=== PATIENT | female | born 1990 | race Caucasian/White ===

== ENCOUNTER 2019-12-09 05:00 | Inpatient (IN) | payer OTHER, SELFPAY ==
[2019-12-09] VITALS (202 sets, daily range): BP systolic 88–127; BP diastolic 44–87; PULSE 25–144; TEMP 36.4–37.6; O2SAT 84–100; BMI 27.3
--- NOTE | 2019-12-09 05:07 | LDADM ---
This patient, Genevieve Brewster, was admitted to Labor/Delivery/Recovery 104 on 12/09/19 at 05:00. Plans for labor, pain management and were discussed with patient. Patient/family oriented to hospital policies and general routines including ID bracelet, bed and alarms, visiting hours, pain management, procedures, bathroom and other care routines, personal items, smoking policy, room service/diet and guest tray routines, security routines, and visiting hours. Patient/Family are encouraged to report perceived risks to care and to ask questions if they do not understand what they are told or what they should do. See OBIX for further documentation.
[2019-12-09 05:40] LABS: Basophils Percent Auto 0.3 % (0.2-1.2); Eosinophils Absolute Auto 0.1 K/mm3 (0-0.3); Eosinophils Percent Auto 1.2 % (0-4.4); Hematocrit 37.3 % (37.0-47.0); Hemoglobin 12.9 g/dL (12.0-15.0); Immature Granulocyte Absolute 0.05 K/mm3 (0.00-0.031); Immature Granulocyte Percent A 0.5 % (0-0.5); Lymphocytes Absolute Auto 1.59 K/mm3 (0.9-3.2); Lymphocytes Percent Auto 15.3 % (18.3-44.2); Mean Corpuscular HGB Conc 34.6 g/dl (32-36); Mean Corpuscular Hemoglobin 30.9 pg (26-34); Mean Corpuscular Volume 89.4 fl (80-100); Mean Platelet Volume 11.1 fl (7.4-10.4); Monocytes Absolute Auto 0.5 K/mm3 (0.1-0.6); Monocytes Percent Auto 5.1 % (2.6-8.5); Neutrophils Absolute Auto 8.1 K/mm3 (1.3-6.7); Neutrophils Percent Auto 77.6 % (45.5-73.1); Platelet Count Result 247 k/mm3 (150-375); Red Blood Count 4.17 M/mm3 (4.2-5.4); Red Cell Distribution Width 12.8 % (11.5-14.5); White Blood Count 10.4 K/mm3 (4.5-10.0)
[2019-12-09] MEDS: OXYTOCIN 30 UNITS/NS 500 ML 30 UNITS/500 ML BAG 6 UNITS IV CONT (05:42)
[2019-12-09] MEDS: LACTATED RINGERS 1,000 ML 125 ML IV CONT ×2 (05:42→14:08)
--- NOTE | 2019-12-09 07:39 | WPDOBADMIT ---
Obstetrics - Admit Note Admission Note: record reviewed. No pertinent additions to the history and/or any subsequent changes in the physical findings that are not consistent with the expected course of the were found. Additions to the history and/or subsequent changes in the physical findings follow. Here for MIL at 39 wks. Cervix 150/-2 AROM with clear fluid. FHTs reactive
[2019-12-09 11:04] LABS: Rapid Plasma Reagin Non-Reactive (NonReactive)
--- NOTE | 2019-12-09 13:39 | P.PNAN_ITS ---
Anes - Eval Pre Procedure Procedure: labor epidural Date/Time: 12/09/19 13:39 Pre Op Diagnosis: IOL Patient Data Age: 29 Gender: F Height: 1.6 m Weight: 70 kg Last Vital Signs Temp 37.2 C 12/09/19 11:30 Pulse 71 12/09/19 13:31 BP 107/70 12/09/19 13:31 Allergies Allergy/AdvReac Type Severity Reaction Status Date / Time No Known Allergies Allergy Unverified 04/16/19 14:49 Home Medications Medication Instructions Recorded Confirmed Type PNV cmb#95-ferrous fumarate-FA 1 tablet PO DAILY 11/10/19 11/10/19 History [] ergocalciferol (vitamin D2) 1,250 mcg PO WEEKLY 11/10/19 11/10/19 History [Vitamin D2] Laboratory Tests 12/09/19 12/09/19 12/09/19 05:22 05:22 05:22 WBC 10.4 K/mm3 H K/mm3 (4.5-10.0) RBC 4.17 M/mm3 L M/mm3 (4.2-5.4) Hgb 12.9 g/dL g/dL (12.0-15.0) Hct 37.3 % % (37.0-47.0) MCV 89.4 fl fl (80-100) MCH 30.9 pg pg (26-34) MCHC 34.6 g/dl g/dl (32-36) RDW 12.8 % % (11.5-14.5) Plt Count 247 k/mm3 k/mm3 (150-375) MPV 11.1 fl H fl (7.4-10.4) Immature Gran % (Auto) 0.5 % % (0-0.5) Neut % (Auto) 77.6 % H % (45.5-73.1) Lymph % (Auto) 15.3 % L % (18.3-44.2) [place] % (Auto) 5.1 % % (2.6-8.5) Eos % (Auto) 1.2 % % (0-4.4) Baso % (Auto) 0.3 % % (0.2-1.2) Lymph # (Auto) 1.59 K/mm3 K/mm3 (0.9-3.2) [place] # (Auto) 0.5 K/mm3 K/mm3 (0.1-0.6) Eos # (Auto) 0.1 K/mm3 K/mm3 (0-0.3) Baso # (Auto) 0.0 K/mm3 K/mm3 (0.0-0.1) Abs Immat Gran (auto) 0.05 K/mm3 H K/mm3 (0.00-0.031) Absolute Neuts (auto) 8.1 K/mm3 H K/mm3 (1.3-6.7) Absolute Nucleated RBC 0.0 K/mm3 K/mm3 (0.0-0.012) Nucleated RBC % 0.0 % % (0.0-0.2) RPR Non-reactive (NonReactive) Blood Type A Positive Antibody Screen Negative Patient hx anesthesia problems: none Family hx anesthesia problems: none PMFSH Family History Family History Father Diabetes mellitus Hypertension Grandparent Cancer of unknown origin Grandparent Prediabetes Grandparent Diabetes mellitus Father Diabetes mellitus Hypertension Patient's father is in good health Grandparent Diabetes mellitus Mother Patient's mother is in good health Social History Social History Smoking status: Never smoker Alcohol intake: current Drinks per week: 2 Substance use: never Substance use type: does not use Gender identity (if verbalized by the patient): Female Spiritual care concerns: No Exam Day of Procedure 12/09/19 13:39
[2019-12-10] VITALS (54 sets, daily range): BP systolic 93–120; BP diastolic 42–73; PULSE 61–159; RESP 16–18; TEMP 36.4–37.6; O2SAT 84–100
[2019-12-10] MEDS: LACTATED RINGERS 1,000 ML 125 ML IV CONT (01:59)
--- NOTE | 2019-12-10 03:31 | PM.OBPRVD ---
OB - Delivery Note Procedure Delivery date: 12/10/19 events: Labor Induction Intrapartal events: None Induction method: AROM and per pitocin protocol Delivery monitor: external FHT and internal uterine Route of delivery: Laceration description: Vaginal - 1st Degree Delivery repair: vicryl (3-0 vicryl) Specimen: No Estimated blood loss (mL): 100 Anesthesia type: Epidural Disposition: PACU [place] Weeks of gestation at delivery: 39 gender: Male Weight (pounds): 7 Weight (ounces): 6 presentation: vertex Placenta delivery description: Spontaneous cord vessel description: 3 Vessels score one minute: 8 score five minutes: 9
--- NOTE | 2019-12-10 03:33 | PM.OBDSVD ---
DS: Admitting Diagnosis Admitting Diagnosis Admitting Diagnosis: IUP 39 wk OB - DS: Summary OB Procedures : Ultrasound OB Procedures Intrapartum: Spontaneous Vag Delivery OB Procedures: : None Peripartum Data Infant Delivery Method: Natural Vaginal Laceration description: Vaginal - 1st Degree complications: none Status at Discharge Functional status at discharge: independent ambulation Overall status at discharge: patient is progressing back to baseline Time Spent with Patient Time attestation: Total time spent providing and/or coordinating discharge services: DS: Data Data Completed and Pending Labs on day of discharge: Labs from last 24 hours 12/09/19 12/09/19 12/09/19 05:22 05:22 05:22 WBC 10.4 H RBC 4.17 L Hgb 12.9 Hct 37.3 MCV 89.4 MCH 30.9 MCHC 34.6 RDW 12.8 Plt Count 247 MPV 11.1 H Immature Gran % (Auto) 0.5 Neut % (Auto) 77.6 H Lymph % (Auto) 15.3 L [place] % (Auto) 5.1 Eos % (Auto) 1.2 Baso % (Auto) 0.3 Lymph # (Auto) 1.59 [place] # (Auto) 0.5 Eos # (Auto) 0.1 Baso # (Auto) 0.0 Abs Immat Gran (auto) 0.05 H Absolute Neuts (auto) 8.1 H Absolute Nucleated RBC 0.0 Nucleated RBC % 0.0 RPR Non-reactive Blood Type A Positive Antibody Screen Negative Discharge Plan Discharge Attending physician on discharge: Yamel Ugarte Discharging Clinician: Yamel Ugarte Anticipated Discharge Date/Time: 12/11/19 07:51 Patient Disposition: Home, Self-Care Activity: may shower and pelvic rest Diet: regular Patient Instructions: Antibiotic Form Stand Alone Forms: General Discharge Information Follow-up/Referrals: Yamel Ugarte MD [Physician] - 6 Weeks Discharge Medications: Continued ergocalciferol (vitamin D2) [Vitamin D2] 1,250 mcg (50,000 unit) Capsule 1,250 mcg PO WEEKLY RF: 0 PNV cmb#95-ferrous fumarate-FA [] 28 mg iron- 800 mcg Tablet 1 tablet PO DAILY RF: 0 Date of admission: 12/09/19 05:00 Primary Care Provider: Jeremías White Admitting Provider: Yamel Ugarte Attending physician on admission: Yamel Ugarte Condition: Stable Care Plan Goals: Plans to use condoms for bc
[2019-12-10] MEDS: OXYTOCIN 30 UNITS/NS 500 ML 30 UNITS/500 ML BAG 125 UNITS IV CONT (03:52)
[2019-12-10] MEDS: WITCH HAZEL 40 PADS 1 PAD TOPICAL (05:49)
[2019-12-10] MEDS: BENZOCAINE 20% AER SPR (*SP) 56 GM CAN 1 SPRAY TOPICAL (05:49)
[2019-12-10] MEDS: WITCH HAZEL 40 PADS 1 PAD (08:38)
[2019-12-10] MEDS: MULTIVIT/MIN/PREN/FOL AC/IRON TABLET 1 TAB PO (08:38)
--- NOTE | 2019-12-10 09:30 | PC.NURSE ---
Consulted with patient, mother states does not latch without using a nipple shield for all feedings. Mother states infant keeps tongue up and will not drop tongue to allow a correct latch Discussed nipple shield precautions and possible complications. Instructions given on application and cleaning of nipple shield Reviewed feeding cues, frequencies, durations of feeding, milk supply, feeding/elimination flow sheet and signs of adequate intake. Demonstrated stimulation techniques to wake infant for feeding. Assisted with infant to breast with nipple shield. Reviewed positioning/alignment, holding breast and asymmetrical latch on. was able to latch correctly nursing with long draws and occasional swallowing noted. Reviewed milk production and need for additional stimulation for milk supply and need to initiate pumping. Suggested feeding plan to attempt infant to breast every three hours, before if feeding cues noted. Allow to attempt for 10-15 min, if is effectively nursing allow infant to nurse up to 20 min per breast. Mother will then pump 10 minutes after feeding. Instructed mother to call out for RN assistance if she is unable to latch for feeding or she has discomfort with nursing. Instructed feeding should be initiated three hours from start of last feeding or if feeding cues are noted before. Mother voiced understanding of information
--- NOTE | 2019-12-10 13:10 | PC.NURSE ---
Mother called out for assist with feeding. Mother has put infant to breast earlier without assistance. Reviewed infant feeding cues, frequencies, duration of feedings, feeding elimination flow sheet, and signs of adequate intake. Demonstrated stimulation techniques to wake infant for feeding. Assisted with to breast without shield. Reviewed positioning/alignment in cross cradle, holding breast in U hold and guided asymmetrical latch on. Discussed rational for each. Several attempts before was able to latch correctly. Infant nursed eagerly, with steady draws and frequent swallowing for bursts, followed with long pausing. Reviewed signs of a correct latch, effective nursing and suck swallow ratio. was able to maintain latch without discomfort to mother. Nipple care reviewed. Advised to stimulate while feeding to keep awake and nursing effectively for increased intake and to assist with maintaining deep latch. Demonstrated how to adjust latch more deeply while feeding. Instructed mother to call out for RN assistance if she is unable to latch infant for feeding or she has discomfort with nursing. Instructed feeding should be initiated three hours from start of last feeding or if feeding cues are noted before. Mother voiced understanding of information shared.
--- NOTE | 2019-12-10 13:30 | PC.NURSE ---
Breast pump provided due to nipple shield use at times. Instructions given on breast pump care and usage, pumping schedule, nipple care, and collection and storage of breast milk. Encouraged [id number], breast massage and manual expression to stimulate supply. Assessed patient for correct flange size, placement and draw. Patient verbalizes and demonstrates understanding of instructions.
[2019-12-11] MEDS: IBUPROFEN 600 MG TABLET PO (00:22)
[2019-12-11 05:17] LABS: Hematocrit 30.6 % (37.0-47.0); Hemoglobin 10.4 g/dL (12.0-15.0)
--- NOTE | 2019-12-11 07:50 | PM.OBPNVD ---
OB - PN: Subj Subjective Date/time seen: 12/11/19 07:50 Patient comments: no complaints and pain well controlled baby status: doing well and nursing well OB - PN: Obj Data Labs CBC & Chem 7: 12/11/19 04:27 Labs: Laboratory Results - last 24 hr 12/11/19 04:27 Hgb 10.4 L Hct 30.6 L OB - PN A/P Plan day: 1 Plan: routine care, discharge home (if ok with peds) and follow up 6 weeks Comments: plans condoms for bc Time Spent With Patient Time: Total time spent is greater than 50% in coordination of care (as documented) at patient's floor/unit and/or counseling patient: Exam : Bimanual exam- vagina & uterus: other (Uterus firm, nt @U)
[2019-12-11 08:20] VITALS: BP 105/71; PULSE 65; RESP 16; TEMP 37.1; O2SAT 98
[2019-12-11] MEDS: MULTIVIT/MIN/PREN/FOL AC/IRON TABLET 1 TAB PO (09:55)
[2019-12-11] MEDS: ACETAMINOPHEN 325 MG TABLET 650 MG PO (09:56)
[2019-12-11] MEDS: DOCUSATE SODIUM 100 MG CAPSULE PO (09:56)
--- NOTE | 2019-12-11 10:11 | WPDANLDPN2 ---
Anes-Prog Note L&D Date/Time: 12/11/19 10:11 Comfortable throughout: labor and delivery Neuraxial method: epidural Epidural/Spinal procedure site: clean & non-tender Neuro status: Neuro function grossly intact. Cardiovascular status: normal Respiratory status: normal Airway patency: baseline Mental status: baseline Post-Op hydration status: normal Vital Signs: Last Vital Signs Temp 37.1 C 12/11/19 08:20 Pulse 65 12/11/19 08:20 Resp 16 12/11/19 08:20 BP 105/71 12/11/19 08:20 Pulse Ox 98 12/11/19 08:20 Post-procedural complaints: none Patient feedback: Patient satisfied with anesthetic care.
[2019-12-12 07:59] VITALS: BP 124/71; PULSE 62; RESP 16; TEMP 36.9; O2SAT 100
== END 2019-12-11 17:17 | disposition home or self-care (01) | DRG 807 ==
LOC: ANHLDR 12-10 03:34 → ANHOB2 12-10 05:44
PROVIDERS: Admitting Provider Obstetrics & Gynecology Gynecology; PCP Family Medicine; Visit Provider Obstetrics & Gynecology Gynecology
DX: O70.0 First degree perineal laceration during delivery (principal); Z37.0 Single live birth; Z3A.39 39 weeks gestation of pregnancy
CPT/HCPCS: 36415; 85014; 85018; 85025; 86592; 86850; 86900; 86901; A9270; J2590; J2795; J7120

== ENCOUNTER → 2021-09-15 08:49 | Outpatient (CLI) | payer OTHER, SELFPAY ==
--- NOTE | ~2021-09-15 | MMUS_ITS ---
EXAMINATION: MM diagnostic rosie BI w alysha, US breast BI complete HISTORY: Palpable breast abnormality. TECHNIQUE: Additional 3-D tomosynthesis images of the breasts were performed and synthetic 2-D images were generated. CAD analysis was submitted and interpreted. High resolution complete bilateral breas t ultrasound was performed. COMPARISON: None BREAST PARENCHYMAL COMPOSITION: The breasts are extremely dense, which lowers the sensitivity of mamm ography FINDINGS: MAMMOGRAPHIC FINDINGS: No discrete mass, calcification or suspicious architectural distortion identified in either breast to suggest malignancy. ULTRASOUND: Complete bilateral US of all 4 quadrants of the breasts and retroareolar region was reviewed. Normal heterogeneous echotexture in both breasts without discrete solid or cystic mass. IMPRESSION: 1. No evidence for malignancy in either breast. 2. Routine yearly screening mammogram and regular clinical breast examination are recommended. BI-RADS Category 1: Negative Reviewed, dictated and finalized at location A. IMPRESSION: 1. No evidence for malignancy in either breast. 2. Routine yearly screening mammogram and regular clinical breast examination a re recommended. BI-RADS Category 1: Negative
== END ==
PROVIDERS: PCP Obstetrics & Gynecology Gynecology; Visit Provider Obstetrics & Gynecology Gynecology
DX: N64.4 Mastodynia (principal)
CPT/HCPCS: 76641; 77062; 77066; G0279

== ENCOUNTER 2021-09-20 13:53 | Emergency (ER) | payer OTHER, SELFPAY ==
[2021-09-20 14:00] VITALS: BP 109/65; PULSE 89; RESP 18; TEMP 37.3; O2SAT 100
--- NOTE | 2021-09-20 14:00 | ED.URI ---
HPI - URI/Sore Throat General Chief Complaint: Ear Stated Complaint: Sore Throat/Ear Pain Time Seen by Provider: 09/20/21 14:00 Source: patient Mode of arrival: ambulatory Limitations: no limitations History of Present Illness HPI Narrative: Ms. Brewster is a 31-year-old female patient presenting to the clinic today with complaints of right ear pain, sore throat, and runny nose x2 days. She denies any chills however she may have felt a little feverish last night. Denies any persistent coughing or having upper of cough. Denies any known exposure to anybody with flu, strep, or COVID. MD elicited complaint: sore throat and nasal congestion Related Data Home Medications Medication Instructions Recorded Confirmed PNV cmb#95-ferrous fumarate-FA 1 tablet PO DAILY 11/10/19 11/10/19 [] ergocalciferol (vitamin D2) 1,250 mcg PO WEEKLY 11/10/19 11/10/19 [Vitamin D2] Allergies Allergy/AdvReac Type Severity Reaction Status Date / Time No Known Allergies Allergy Verified 09/20/21 14:07 Review of Systems Review of Systems: Pertinent positives per HPI. Patient denies any fever, chills, rash, headache, visual changes, dizziness, cough, shortness of breath, chest pain, palpitations, nausea, vomiting, diarrhea, constipation, abdominal pain, or any urinary issues. PMFSH Family History Family History Father Diabetes mellitus Hypertension Grandparent Cancer of unknown origin Grandparent Prediabetes Grandparent Diabetes mellitus Father Diabetes mellitus Hypertension Patient's father is in good health Grandparent Diabetes mellitus Mother Patient's mother is in good health Social History Social History Smoking status: Never smoker Alcohol intake: current Drinks per week: 2 Alcohol use details: wine Substance use: never Substance use type: does not use Gender identity (if verbalized by the patient): Female Spiritual care concerns: No Comments At the time of my signature, I reviewed and agree with the nursing past medical, surgical, social, and family history. There is no relevant family history pertinent to the patient complaint. Exam Narrative: General: Well-developed, well nourished, in no apparent distress Head: Normocephalic, atraumatic Eyes: Pupils equally round and reactive to light bilaterally, EOM intact, sclera and conjunctive clear, no discharge, lids normal Ears: Left TMs intact and dull, right TM intact, dull, mild bulging, ear canals clear, no drainage, grossly hearing normal. Nose: Nares patent, clear nasal discharge, mild inflammation, no sinus tenderness. Mouth: Oral pharynx without lesions or masses, good dentition, MMM. Oropharynx red Neck: Supple, trachea midline, no enlargement of anterior or posterior cervical nodes, no thyroid masses or goiter palpable. Cardio: Regular rate and rhythm, s1 and s2 normal, no murmur appreciated. Resp: Clear to auscultation bilaterally, no rhonchi, rales, wheezing or rubs Course Course Emergency Course: Portions of this record may have been created with voice recognition software. Level of Care: Express Care Visit Vital Signs Vital signs: Vital signs reviewed MDM - URI/Sore Throat MDM Narrative Medical decision making narrative: At the time of visit patient is resting comfortably on the exam table. Strep screen is negative and she has runny nose with postnasal drip. I suspect the patient has an upper respiratory infection causing sore throat and eustachian tube dysfunction. Supportive measures were discussed and patient voiced understanding of discharge instructions Differential Diagnosis Differential diagnosis: Likely upper respiratory infection, otitis media, sinusitis, viral infection, bronchitis, influenza and pharyngitis Discharge Plan Discharge Clinical Impression: Acute upper respiratory
== END 2021-09-20 14:38 | disposition home or self-care (01) ==
PROVIDERS: Emergency Provider Nurse Practitioner Family
DX: J06.9 Acute upper respiratory infection, unspecified (principal)
CPT/HCPCS: 87081; 87880; 99213; G0463

== ENCOUNTER → 2022-03-16 15:29 | Outpatient (CLI) | payer OTHER, SELFPAY ==
--- NOTE | ~2022-03-16 | US_ITS ---
EXAMINATION: US OB <= 14 weeks fetus DATE: 03/16/2022 15:52 INDICATION: Uncertain dates. . TECHNIQUE: Real-time transabdominal pelvic ultrasound was performed. COMPARISON: None. FINDINGS: The uterus measures 7.4 x 5.3 x 6.8 cm. There is an intrauterine gestational sac. A yolk sac is ident ified. The crown rump length measures 3.8 cm, which correlates with an estimated gestational a ge of 10 weeks and 5 day(s) (+/-) 1 week(s) and 0 day(s). heart motion is identified measuring 167 beats per minute (bpm) by M-mode Doppler. The right ovary measures 2.1 x 1.6 x 1.7 cm. The left o vary measures 2.9 x 1.6 x 2.2 cm. There is no free fluid in the pelvis. IMPRESSION: 1. Single living intrauterine gestation with estimated date of delivery of 10/07/2022. Reviewed, dictated and finalized at location A. TY CONSULTANT IMPRESSION: 1. Single living intrauterine gestation with estimated date of delivery of 10/07.
== END ==
PROVIDERS: PCP Obstetrics & Gynecology Gynecology; Visit Provider Obstetrics & Gynecology Gynecology
DX: Z36.87 Encounter for antenatal screening for uncertain dates (principal)
CPT/HCPCS: 76801

== ENCOUNTER → 2022-05-11 14:56 | Outpatient (CLI) | payer OTHER, SELFPAY ==
--- NOTE | ~2022-05-11 | US_ITS ---
EXAMINATION: US OB /maternal detail DATE: 05/11/2022 15:48 INDICATION: survey TECHNIQUE: Multiple obstetric sonographic images performed. FINDINGS: Ultrasound dated 03/16/2022 There is a single living fetus in transverse presentation. The placenta is anterior without placenta previa. Placental margin is 4.1 cm to the cervix. Cervical length is 3.7 cm. Amniotic fluid volume i s subjectively normal. cardiac activity and movement is noted with a heart rate of 143 beats per minute. The following anatomy was identified as normal: 4 chamber heart 3 vessel cord cord insertion kidneys urinary bladder stomach spine diaphragm ventricles cisterna magna cerebellum The following biometric data were obtained: BPD: 43mm corresponds to gestational age 19 weeks 0 days. Head circumference: 158 mm corresponds to gestational age 18 weeks 5 days. Abdominal circumference: 132 mm corresponds to gestational age 18 weeks 5 days. Femur length: 28 mm corresponds to gestational age 18 weeks 3 days. Head circumference to abdominal circumference ratio: 1.2 (normal range for expected gestational age i s 1.09-1.26). Estimated weight: 247 grams +/- 37 grams using Hadlock method. IMPRESSION: 1: Single living intrauterine with an estimated gestational age of 18weeks 5days by initial ultrasound measurements, with an EDC of 10/07/2022 in transverse presentation. 2. Normal survey. Reviewed, dictated and finalized at location A. [employer] MACHINE IMPRESSION: 1: Single living intrauterine with an estimated gestational age of 18 weeks 5days by initial ultrasound measurements, with an EDC of 10/07/2022 in tr ansverse presentation. 2. Normal survey.
== END ==
PROVIDERS: PCP Obstetrics & Gynecology Gynecology; Visit Provider Obstetrics & Gynecology Gynecology
DX: Z36.9 Encounter for antenatal screening, unspecified (principal); Z3A.18 18 weeks gestation of pregnancy
CPT/HCPCS: 76805

== ENCOUNTER 2022-09-12 11:44 | Outpatient (CLI) | payer OTHER, SELFPAY ==
--- NOTE | ~2022-09-12 | US_ITS ---
EXAMINATION: US OB follow up DATE: 09/12/2022 12:08 INDICATION: Suspected poor growth. TECHNIQUE: Real-time transabdominal obstetric ultrasound. FINDINGS: No prior studies for comparison. There is a single living fetus in vertex presentation. The placenta is anterior without placenta pre via. cardiac activity and movement is noted with a heart rate of 138 beats per minute. T he amniotic fluid volume is increased. KARLA measures 25.8 cm (normal range for gestational age is 7.7- 24.9 cm). Cervical length is 2.6 cm. The following biometric data were obtained: BPD: 88mm corresponds to gestational age 35 weeks 5 days. Head circumference: 320mm corresponds to gestational age 36 weeks 0 days. Abdominal circumference: 328mm corresponds to gestational age 36 weeks 5 days. Femur length: 70mm corresponds to gestational age 35 weeks 6 days. Estimated weight: 2899grams +/- 435grams, 49.2%.] IMPRESSION: 1. Single living intrauterine in vertex presentation with an estimated gestational age of 36 weeks 3 days by inititial ultrasound. Appropriate interval growth. 2. Normal placenta. 3: Polyhydramnios. KARLA measures 25.8 cm. Reviewed, dictated and finalized at location L. IMPRESSION: 1. Single living intrauterine in vertex presentation with an estimat ed gestational age of 36 weeks 3 days by inititial ultrasound. Appropriate int erval growth. 2. Normal placenta. 3: Polyhydramnios. KARLA measures 25.8 cm.
== END 2022-09-12 11:45 ==
LOC: MICIMG 11:47
PROVIDERS: PCP Advanced Practice Midwife; Visit Provider Advanced Practice Midwife
DX: O36.5930 Maternal care for other known or suspected poor fetal growth, third trimester, not applicable or unspecified (principal); Z3A.36 36 weeks gestation of pregnancy
CPT/HCPCS: 76816

== ENCOUNTER 2022-10-03 05:01 | Inpatient (IN) | payer OTHER, SELFPAY ==
[2022-10-03] VITALS (169 sets, daily range): BP systolic 93–150; BP diastolic 42–79; PULSE 55–105; TEMP 36.4–36.9; O2SAT 88–100; BMI 30.2
--- NOTE | 2022-10-03 05:50 | WPDANESEPPF ---
Anes - Initial Pre Proc Eval Procedure: Labor Epidural Date/Time: 10/03/22 05:50 Surgeon: Yamel Ugarte MD Pre Op Diagnosis: Labor Pain Pre Op Diagnosis: IOL Patient Data Age: 32 Gender: F Height: 1.6 m Weight: 77.5 kg Last Vital Signs Pulse 88 10/03/22 05:45 BP 117/64 10/03/22 05:45 O2 Del Method Room Air 10/03/22 05:23 Allergies Allergy/AdvReac Type Severity Reaction Status Date / Time No Known Allergies Allergy Verified 09/20/21 14:07 Home Medications Medication Instructions Recorded Confirmed Type ergocalciferol (vitamin D2) 1,250 1,250 mcg PO MONTHLY 11/10/19 09/12/22 History mcg (50,000 unit) capsule (Vitamin D2) vit no.95-ferrous 1 tablet PO DAILY 11/10/19 09/12/22 History fumarate 28 mg-folic acid 800 mcg tablet () Laboratory Tests 10/03/22 05:41 WBC Pending RBC Pending Hgb Pending Hct Pending MCV Pending MCH Pending MCHC Pending RDW Pending Plt Count Pending MPV Pending Immature Gran % (Auto) Pending Neut % (Auto) Pending Lymph % (Auto) Pending [place] % (Auto) Pending Eos % (Auto) Pending Baso % (Auto) Pending Lymph # (Auto) Pending [place] # (Auto) Pending Eos # (Auto) Pending Baso # (Auto) Pending Abs Immat Gran (auto) Pending Absolute Neuts (auto) Pending Absolute Nucleated RBC Pending Nucleated RBC % Pending RPR Pending Patient hx anesthesia problems: none Family hx anesthesia problems: none Results Review: All pre-operative results and documents have been reviewed as part of the pre-operative evaluation. [facility] Family History Family History Father Diabetes mellitus Hypertension Grandparent Cancer of unknown origin Grandparent Prediabetes Grandparent Diabetes mellitus Father Diabetes mellitus Hypertension Patient's father is in good health Grandparent Diabetes mellitus Mother Patient's mother is in good health Social History Social History Smoking status: Never smoker Alcohol intake: current Drinks per week: 2 Alcohol use details: wine Substance use: never Substance use type: does not use Lack of Transportation: No Lack of Food: Never True Current Housing: I Have Housing Concerned About Future Housing: No Difficulty Paying Gas/Electric Bills: No Difficulty Paying for Meds: No Currently Unemployed: No Education: Master's Degree or Higher Difficulty w/ Childcare or Family Care: No Gender identity (if verbalized by the patient): Female Spiritual care concerns: No Anes - Eval Final PreProcedure Day of Procedure 10/03/22 05:50 ASA classification: II Anesthetic plan: proceed Anesthesia type and monitoring: regional epidural and standard monitoring Results Review: All pre-operative results and documents have been reviewed as part of the pre-operative evaluation. Informed Consent: The patient's anesthetic plan and its attendant risks and benefits were discussed with the patient/family/POA. Questions were solicited and answers provided to the satisfaction of the patient/family/POA.
[2022-10-03 05:55] LABS: Basophils Absolute Auto 0.1 K/mm3 (0.0-0.1); Basophils Percent Auto 0.5 % (0.2-1.2); Eosinophils Absolute Auto 0.2 K/mm3 (0-0.3); Eosinophils Percent Auto 2.3 % (0-4.4); Hemoglobin 12.3 g/dL (12.0-15.0); Immature Granulocyte Absolute 0.05 K/mm3 (0.00-0.031); Immature Granulocyte Percent A 0.5 % (0-0.5); Lymphocytes Absolute Auto 1.44 K/mm3 (0.9-3.2); Lymphocytes Percent Auto 15.7 % (18.3-44.2); Mean Corpuscular HGB Conc 34.2 g/dl (32-36); Mean Corpuscular Hemoglobin 30.9 pg (26-34); Mean Corpuscular Volume 90.5 fl (80-100); Mean Platelet Volume 10.3 fl (7.4-10.4); Monocytes Absolute Auto 0.7 K/mm3 (0.1-0.6); Monocytes Percent Auto 7.3 % (2.6-8.5); Neutrophils Absolute Auto 6.7 K/mm3 (1.3-6.7); Neutrophils Percent Auto 73.7 % (45.5-73.1); Platelet Count Result 227 k/mm3 (150-375); Red Blood Count 3.98 M/mm3 (4.2-5.4); Red Cell Distribution Width 13.1 % (11.5-14.5); White Blood Count 9.2 K/mm3 (4.5-10.0)
[2022-10-03] MEDS: OXYTOCIN 30 UNITS/NS 500 ML 30 UNITS/500 ML BAG IV CONT ×2 (06:07→22:10)
[2022-10-03] MEDS: LACTATED RINGERS 1,000 ML 125 ML IV CONT ×2 (06:07→14:24)
[2022-10-03 06:38] LABS: Rapid Plasma Reagin Non-Reactive (NonReactive)
--- NOTE | 2022-10-03 07:48 | WPDOBADMIT ---
Obstetrics - Admit Note Admission Note: record reviewed. No pertinent additions to the history and/or any subsequent changes in the physical findings that are not consistent with the expected course of the were found. Additions to the history and/or subsequent changes in the physical findings follow. Here for MIL. Cervix 2-3/50/-2 posterior. AROM with clear fluid. FHTs category I. Continue pitocin.
[2022-10-03] MEDS: ONDANSETRON INJ 4 MG/2 ML VIAL IV PUSH (20:48)
--- NOTE | 2022-10-03 22:01 | P.PCNOB_ITS ---
OB - Delivery Note Procedure Delivery date: 10/03/22 Procedure: Events: Other (MIL for 39 weeks) Induction method: AROM and Per Pitocin Protocol Delivery monitor: External FHT and Internal Uterine Route of delivery: Episiotomy description: None Laceration Description: None Specimen: No Quantitative Blood Loss (ml): 100 Anesthesia type: None Disposition: Floor [place] Baby Date of : 10/03/22 Weeks of gestation at delivery: 39 gender: Female presentation: vertex position: Right Occiput Anterior Placenta delivery description: Spontaneous Cord Vessel Description: 3 Vessels, Nuchal Cord and Delayed Cord Clamping score one minute: 8 score five minutes: 9
--- NOTE | 2022-10-03 22:02 | PM.OBDSVD ---
DS: Admitting Diagnosis Discharge Date 10/04/22 Admitting Diagnosis IUP 39 wks MIL DS: Discharge Diagnosis Discharge Diagnosis (1) (normal spontaneous vaginal delivery): Code(s): O80 - Encounter for full-term uncomplicated delivery Status: Acute OB - DS: Summary OB Procedures : Ultrasound OB Procedures Intrapartum: Spontaneous Vag Delivery OB Procedures: : None Peripartum Data Infant Delivery Method: Natural Vaginal Laceration Description: None complications: none Status at Discharge Functional status at discharge: independent ambulation Overall status at discharge: patient is progressing back to baseline Time Spent with Patient Time attestation: Total time spent providing and/or coordinating discharge services: DS: Data Data Completed and Pending Labs on day of discharge: Labs from last 24 hours 10/03/22 05:41 WBC 9.2 RBC 3.98 L Hgb 12.3 Hct 36.0 L MCV 90.5 MCH 30.9 MCHC 34.2 RDW 13.1 Plt Count 227 MPV 10.3 Immature Gran % (Auto) 0.5 Neut % (Auto) 73.7 H Lymph % (Auto) 15.7 L [place] % (Auto) 7.3 Eos % (Auto) 2.3 Baso % (Auto) 0.5 Lymph # (Auto) 1.44 [place] # (Auto) 0.7 H Eos # (Auto) 0.2 Baso # (Auto) 0.1 Abs Immat Gran (auto) 0.05 H Absolute Neuts (auto) 6.7 Absolute Nucleated RBC 0.0 Nucleated RBC % 0.0 RPR Non-reactive Blood Type A Positive Antibody Screen Negative Discharge Plan Discharge Attending physician on discharge: Yamel Ugarte Discharging Clinician: Sailaja Duffy Anticipated Discharge Date/Time: 10/05/22 22:03 Patient Disposition: Home, Self-Care Activity: may shower and pelvic rest Diet: regular Discharge Instructions: Education: Mom and Baby Guide Given to: Mother Follow-Up: Call your delivering provider's office for an appointment to be seen in: 6 Weeks Mom and baby should come to the [facility] for the follow-up appointment. Appointment Date/Time: October 06, 2022 at 11:00 am What to expect at your follow-up visit: Physical Assessment Call [phone] if you are unable to keep your appointment time. BREAST CARE: * Wear a snug supportive bra. * For engorgement discomfort: Breast Feeding: * Apply warm moist washcloths * Express milk as needed to relieve engorgement * Wear loose clothing Bottle Feeding: * May apply ice packs * For sore nipples: * Identify correct latch-on * Apply warm moist washcloths before and after nursing * Air dry nipples after nursing * May apply Lansinoh cream to nipples ABDOMINAL INCISION: (if applicable) * Allow incision to air dry * Do NOT use lotions for powders on your incision * When showering, allow soap and water to run over the incision, but do not wash incision EPISIOTOMY/PERINEAL CARE: * Until bleeding stops, use your michael bottle after urinating * Change your pad frequently throughout the day * You may take sitz baths several times a day (fill your bathtub with warm water and soak for 20 minutes.) Do NOT bathe in the water * No tub baths until seen by your physician - You may shower ACTIVITY: * Rest as much as possible. * Do not exercise or lift anything heavier than your baby (such as laundry or other children.) * Avoid stairs or driving as much as possible. * Do not put anything into the vagina. No douching, tampons, or sexual activity until seen by physician. NOTIFY PHYSICIAN IF YOU HAVE ANY QUESTIONS OR IF ANY OF THE FOLLOWING SYMPTOMS OCCUR: * If your episiotomy or incision becomes red, swollen, or more painful than what you have experienced in the hospital. * If your vaginal bleeding becomes foul smelling. * If your vaginal bleeding becomes more heavy than a period or if your bleeding changes from pink to bright red. However, you may pass an occasional walnut-sized clot once or twice for the first week . * I
[2022-10-03] MEDS: OXYTOCIN 30 UNITS/NS 500 ML 30 UNITS/500 ML BAG 125 UNITS IV CONT (22:47)
[2022-10-04] VITALS (11 sets, daily range): BP systolic 90–110; BP diastolic 50–73; PULSE 61–84; RESP 16–18; TEMP 36.4–37.1; O2SAT 98–99
[2022-10-04] MEDS: WITCH HAZEL 40 PADS 1 PAD TOPICAL
[2022-10-04] MEDS: BENZOCAINE 20% AER SPR (*SP) 56 GM CAN 1 SPRAY TOPICAL
[2022-10-04 05:33] LABS: Hemoglobin 11.8 g/dL (12.0-15.0)
--- NOTE | 2022-10-04 08:21 | P.PNOB_ITS ---
OB - PN: Subj Subjective Date/time seen: 10/04/22 08:21 Interval history: PPD1 from . Doing well. Denies dizziness when upright or ambulating. Patient comments: no complaints and pain well controlled [place] baby status: doing well and nursing well [place] feeding status: exclusively breast feeding OB - PN: Obj Data Labs 10/04/22 03:40 Labs: Laboratory Results - last 24 hr 10/04/22 03:40 Hgb 11.8 L Hct 35.0 L OB - PN A/P Plan day: 1 Plan: routine care Time Spent With Patient Time: Total time spent is greater than 50% in coordination of care (as documented) at patient's floor/unit and/or counseling patient: Review of Systems Review of Systems: All systems reviewed & are unremarkable except as noted in HPI and below Exam Narrative: Alert and oriented. Mood is pleasant and cooperative. Urinating without difficulty. Denies passing any large clots. Perineum with minimal edema. Fundus firm and below umbilicus. Const: General: cooperative, healthy appearing, no acute distress and alert Orientation/consciousness: patient oriented x3 Limitations: no limitations Resp: Effort & Inspection: normal respiratory effort Auscultation: clear to auscultation bilaterally Cardio: Rate: regular rate GI: Inspection: normal to inspection Neuro: General: patient oriented x3 Extrem: General: normal to inspection Psych: Appearance: grossly normal Mental Status: mental status grossly normal Affect: normal affect Thought process: Normal thought process present
[2022-10-04] MEDS: IBUPROFEN 600 MG TABLET PO ×3 (12:14→17:25)
--- NOTE | 2022-10-04 15:19 | PC.NURSE ---
[id number] Introductions were made, then consulted with patient to assess needs related to . Mother led the conversation with her?plans to feed?her infant and is demonstrating independent on her right breast. Mother denies pain and good rocking jaw movement is visualized with appropriate pauses. Resources provided for inpatient and outpatient services with the mom/baby guide and name written on the white board. Mother voiced understanding of information and will call if there is a request for assistance. Reported to the primary RN.
--- NOTE | 2022-10-05 01:43 | PC.NURSE ---
Sailaja Duffy called to notify of patient request for 24 hour discharge. Okay to discharge home.
[2022-10-06 11:27] VITALS: PULSE 82; RESP 18; TEMP 37.6; O2SAT 99
== END 2022-10-04 23:15 | disposition home or self-care (01) | DRG 807 ==
LOC: ANHLDR 22:03 → ANHOB2 10-04 00:57
PROVIDERS: Admitting Provider Obstetrics & Gynecology Gynecology; Visit Provider Obstetrics & Gynecology Gynecology
DX: O80 Encounter for full-term uncomplicated delivery (principal); Z37.0 Single live birth; Z3A.39 39 weeks gestation of pregnancy
CPT/HCPCS: 36415; 85014; 85018; 85025; 86592; 86850; 86900; 86901; A9270; J2405; J2590; J7120